=== PATIENT | female | born 1945 | race Caucasian/White ===

== ENCOUNTER → 2017-04-17 | Emergency (ER) | payer OTHER ==
[~2017-04-17] VITALS: Ht 162.6 cm; Wt 77.1 kg
[~2017-04-17] MED LIST: [UNRECOGNIZED DRUG - OTHER]
== END | disposition designated cancer center or children's hospital (05) ==
LOC: ER 11:38
DX: S27.0XXA Traumatic pneumothorax, initial encounter (principal); S22.42XA Multiple fractures of ribs, left side, initial encounter for closed fracture; S27.321A Contusion of lung, unilateral, initial encounter; S19.9XXA Unspecified injury of neck, initial encounter; W18.09XA Striking against other object with subsequent fall, initial encounter; Y93.89 Activity, other specified; Y92.018 Other place in single-family (private) house as the place of occurrence of the external cause; Y99.8 Other external cause status

== ENCOUNTER → 2017-05-25 | Outpatient (CLI) | payer OTHER | END | disposition home or self-care (01) | LOC: RAD 04-21 15:13 | DX: J44.9 Chronic obstructive pulmonary disease, unspecified (principal) ==

== ENCOUNTER 2018-01-30 16:13 | Outpatient (CLI) | payer OTHER | END 2018-01-30 16:20 | disposition home or self-care (01) | LOC: RAD 16:13 | DX: I10 Essential (primary) hypertension (principal) ==

== ENCOUNTER → 2018-03-02 | Outpatient (CLI) | payer OTHER | END | disposition home or self-care (01) | LOC: RAD 15:05 | DX: I10 Essential (primary) hypertension (principal) ==

== ENCOUNTER 2018-03-09 05:35 | Day surgery (SDC) | payer OTHER | END 2018-03-09 10:20 | disposition home or self-care (01) | LOC: CIR.AMB 05:35 | DX: M75.122 Complete rotator cuff tear or rupture of left shoulder, not specified as traumatic (principal); M75.22 Bicipital tendinitis, left shoulder ==